=== PATIENT | male | born 1945 | race Caucasian/White ===

== ENCOUNTER 2021-09-25 09:59 | Emergency (ER) | payer MEDICARE, OTHER ==
[~2021-09-25] VITALS: Ht 180.3 cm; Wt 76.2 kg
[~2021-09-25 09:59] MED LIST: ATEN25TA PO; DABI150C PO; DILT240C97 PO; DOCU100C33 PO; HYDR25TA PO; OXYC-165 PO; TAMS0.4C32 PO
[2021-09-25 10:30] VITALS: BP 152/108
[2021-09-25] MEDS ORDERED: CLONIDINE HCL 0.2 MG TABLET PO SCH (10:30)
[2021-09-25 11:06] LABS: BASOPHILS % (AUTO) 0.5 % (0.0-5.0); EOSINOPHILS % (AUTO) 0.8 % (0.0-8.0); LYMPHOCYTES % (AUTO) 17.6 % (21.0-51.0); MEAN CORPUSCULAR HEMOGLOBIN 31.5 pg (27.0-33.0); MEAN CORPUSCULAR HGB CONC 33.7 g/dL (32.0-36.0); MEAN CORPUSCULAR VOLUME 93.7 fL (79-99); MONOCYTES % (AUTO) 10.7 % (3.0-13.0); NEUTROPHILS % (AUTO) 70.2 % (40.0-77.0); PLATELET COUNT (AUTO) 146 K/uL (130-400); RED BLOOD CELL COUNT(AUTO) 5.55 MIL/uL (4.50-6.20); RED CELL DISTRIBUTION WIDTH 12.8 % (11.0-15.5)
[2021-09-25 11:11] LABS: CREATININE 0.9 mg/dL (0.5-1.5); POTASSIUM 4.1 mmol/L (3.5-5.1)
== END 2021-09-25 12:02 | disposition home or self-care (01) ==
LOC: EDH 09:59
DX: I16.0 Hypertensive urgency (principal); I10 Essential (primary) hypertension; M47.812 Spondylosis without myelopathy or radiculopathy, cervical region; E78.00 Pure hypercholesterolemia, unspecified; I48.91 Unspecified atrial fibrillation; M19.90 Unspecified osteoarthritis, unspecified site; Z79.01 Long term (current) use of anticoagulants; Z79.899 Other long term (current) drug therapy
CPT/HCPCS: 36415; 80048; 84484; 85025; 93005

== ENCOUNTER → 2023-10-04 | Outpatient (CLI) | payer OTHER | END | disposition home or self-care (01) | LOC: RAH 09:17 | PROVIDERS: ATTEND Internal Medicine Cardiovascular Disease | DX: I74.3 Embolism and thrombosis of arteries of the lower extremities (principal); I73.9 Peripheral vascular disease, unspecified; R60.9 Edema, unspecified | CPT/HCPCS: 93925; 93970 ==

== ENCOUNTER → 2023-11-07 | Outpatient (CLI) | payer OTHER | END | disposition home or self-care (01) | LOC: RAH 13:47 | PROVIDERS: ATTEND Chiropractor | DX: I08.2 Rheumatic disorders of both aortic and tricuspid valves (principal); I11.9 Hypertensive heart disease without heart failure; M47.812 Spondylosis without myelopathy or radiculopathy, cervical region | CPT/HCPCS: 93306 ==

== ENCOUNTER → 2024-01-01 | Outpatient (CLI) | payer OTHER | END | disposition home or self-care (01) | LOC: SHCH 12:27 | PROVIDERS: ATTEND Internal Medicine Cardiovascular Disease | DX: I87.2 Venous insufficiency (chronic) (peripheral) (principal) | CPT/HCPCS: 93970 ==

== ENCOUNTER → 2024-09-02 | Outpatient (CLI) | payer OTHER ==
[~2024-09-02] MED LIST changes: +IOHEXOL-350 75 ML VIAL IV ONE
--- NOTE | 2024-09-02 11:33 | HMCIMG ---
CT ANGIO ABD AORTA W RUNOFF REASON: EDEMA COMPARISON: None TECHNIQUE: CT images were acquired from lung bases through the feet and both lower extremities. The exam was performed before and after IV contrast, 150 cc Omnipaque 350. 2-D and 3-D reconstruction images were performed. FINDINGS: There is mild ectasia of the abdominal aorta without aneurysm or stenosis. Renal and mesenteric artery origins are widely patent. Common and external iliac arteries are patent as are both common femoral Right leg runoff shows occlusion of the right superficial femoral artery in the adductor canal. There is a knee joint stasis in place causing streak artifact. Distal popliteal does not appear to reconstitute. There is musculocutaneous filling of the trifurcation vessels. Posterior tibial artery is patent to the foot and to the digital arch. Peroneal artery is patent to the ankle. The anterior tibial artery appears occluded distally, the dorsalis pedis artery shows faint reconstitution. Left leg shows widely patent to superficial femoral and popliteal arteries. There are are patent trifurcation vessels. There is three-vessel runoff to the ankle with bursitis pedis and posterior tibial runoff to the foot. There is a left hip joint prosthesis in place. Nonvascular findings are otherwise unremarkable. IMPRESSION: 1. Mild ectasia of the abdominal aorta without evidence of aneurysm. 2. Normal-appearing aortoiliac system. 3. Right leg runoff shows an occluded distal superficial femoral artery in the adductor canal, popliteal artery remains occluded, there is muscular cutaneous reconstitution of the proximal runoff vessels. 4. Posterior tibial artery is patent to the ankle, foot and digital arch, peroneal artery patent to the ankle, anterior tibial artery appears occluded at the ankle with faint reconstitution of the dorsalis pedis artery. 5. Left leg runoff shows normal findings, patent SFA and popliteal, three-vessel runoff to the ankle with 2 vessel runoff to the foot.
== END | disposition home or self-care (01) ==
LOC: RAH 08:19
PROVIDERS: ATTEND Internal Medicine Cardiovascular Disease
DX: I77.811 Abdominal aortic ectasia (principal); I77.1 Stricture of artery; R60.0 Localized edema
CPT/HCPCS: 75635; Q9967

== ENCOUNTER → 2024-09-25 | Outpatient (CLI) | payer OTHER ==
[~2024-09-25] MED LIST changes: -IOHEXOL-350 75 ML VIAL IV ONE
--- NOTE | 2024-09-28 07:38 | HMCSR ---
APPROVED REPORT EXAM: Two-dimensional and M-mode echocardiogram with Doppler and color Doppler. INDICATION ICD: R07.9 Chest pain 2D Dimensions RVDd3.7 cmLVEF(%)54.8 (>50%)LVED Vol(simp.)110.0 mL IVSd1.3 (0.7-1.1cm)FS(%)28 %LVES Vol(simp.)54.0 mL LVDd4.3 (3.8-5.6cm)Ao Root(2D)3.7 (2.0-3.7cm)LVEF(%, simp.)51 % PWd1.3 (0.7-1.1cm)LVOT diam2.1 (1.8-2.4cm)LA ESV INDEX (BP)62.26 mL/m2 LVDs3.1 (2.5-4.0cm)IVC diam1.5 cm Aortic Valve AoV Vmax1.3 m/Dimitri Peak GR6.8 mmHgLVOT Vmax0.7 m/s AoV VTI0.3 mAo Mean GR3.3 mmHgLVOT VTI0.14 m PIYUSH (VMAX)1.9 cm2AVA (VTI) 1.9 cm2 Mitral Valve MV E Vmax75.9 cm/sDECEL Xzvi321 ms MR Max PG121 mmHgP 1/2 T47 ms MVA (PHT)4.6 cm2 Pulmonary Valve PV Vmax1.0 m/sPV VTI0.17 m Tricuspid Valve TR Vmax2.4 m/sRAP (EST) 3 afTlBNTP66.2 mmHg TR Peak GR23.2 mmHg Left Ventricle Left ventricular cavity size is normal. There is mild concentric left ventricular hypertrophy. LVEF i s 50-55%. No left ventricle thrombus noted on this study. The LV diastolic function was unable to be assessed due to atrial arrhythmia. Right Ventricle The right ventricle is normal size. The right ventricular systolic function is normal. Atria The left atrium is severely dilated. The right atrium is severely dilated. Aortic Valve Aortic valve is trileaflet. Aortic valve is mildly calcified. Trace aortic regurgitation. Calculated aortic valve area is 1.9 cm2 with maximum pressure gradient of 6.9 mmHg and mean pressure gradient of 3.3 mmHg. Mitral Valve Mitral valve leaflets are mildly sclerotic. Mitral annular calcification is mild. Borderline mitral v alve prolapse. Mitral regurgitation is mild to moderate. There is no mitral valve stenosis. A mild mi tral valve prolapse is present. Tricuspid Valve The tricuspid valve leaflets appear normal. There is moderate tricuspid regurgitation. Pulmonic Valve The pulmonic valve leaflets are thin and pliable; valve motion is normal. There is trace to mild valv ular regurgitation. Great Vessels The aortic root is normal in size. The IVC is normal in size and collapses >50% with inspiration. Pericardium No pericardial effusion. Conclusion Left ventricular cavity size is normal. There is mild concentric left ventricular hypertrophy. LVEF is 50-55%. The right ventricle is normal size. The left atrium is severely dilated. The right atrium is severely dilated. Aortic valve is trileaflet. Aortic valve is mildly calcified. Trace aortic regurgitation. Calculated aortic valve area is 1.9 cm2 with maximum pressure gradient of 6.9 mmHg and mean pressure gradient of 3.3 mmHg. Mitral valve leaflets are mildly sclerotic. Mitral annular calcification is mild. Borderline mitral valve prolapse. Mitral regurgitation is mild to moderate. There is no mitral valve stenosis. There is moderate tricuspid regurgitation. There is trace to mild valvular regurgitation. The aortic root is normal in size. The IVC is normal in size and collapses >50% with inspiration. No pericardial effusion.
== END | disposition home or self-care (01) ==
LOC: SHCH 12:17
PROVIDERS: ATTEND Internal Medicine Cardiovascular Disease
DX: I08.3 Combined rheumatic disorders of mitral, aortic and tricuspid valves (principal); R07.9 Chest pain, unspecified
CPT/HCPCS: 93306

== ENCOUNTER → 2024-10-12 | Outpatient (CLI) | payer OTHER ==
--- NOTE | 2024-10-13 09:35 | HMCSR ---
APPROVED REPORT Laterality: Bilateral Indications r09.89 Doppler Spectral Velocity Analysis PSV / EDVPSV / EDV ECA (R) 61 / cm/sECA (L) 25 / cm/s dICA (R) 50 / 23 cm/sdICA (L) Ambreen (R) 51 / 22 cm/smICA (L) pICA (R) 51 / 22 cm/spICA (L) dCCA (R) 70 / 19 cm/sdCCA (L) mCCA (R) 63 / 22 cm/smCCA (L) pCCA (R) 84 / 26 cm/spCCA (L) Vert (R) 37 / cm/sVert (L) 81 / cm/s Subl. (R) 86 / cm/sSubl. 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 Unlcear, but it appear there is retrograde flow in the LICA, with antegrade flow in the LECA. Minimal plaque noted in the right carotids, without hemodynamic significance. Bilateral vertebral arteries appear antegrade. 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 Unlcear, but it appear there is retrograde flow in the LICA, with antegrade flow in the LECA. Minimal plaque noted in the right carotids, without hemodynamic significance. Bilateral vertebral arteries appear antegrade. 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 Unlcear, but it appear there is retrograde flow in the LICA, with antegrade flow in the LECA. Minimal plaque noted in the right carotids, without hemodynamic significance. Bilateral vertebral arteries appear antegrade.
== END | disposition home or self-care (01) ==
LOC: SHCH 12:33
PROVIDERS: ATTEND Internal Medicine Cardiovascular Disease
DX: I65.22 Occlusion and stenosis of left carotid artery (principal); R09.89 Other specified symptoms and signs involving the circulatory and respiratory systems
CPT/HCPCS: 93880

== ENCOUNTER 2024-11-19 16:55 | Emergency (ER) | payer OTHER ==
[~2024-11-19] VITALS: Ht 180.3 cm; Wt 81.6 kg
--- NOTE | 2024-11-19 17:28 | ERN ---
General Chief Complaint: Other Problems Stated Complaint: OTHER Time Seen by MD: 17:14 Time Seen by Midlevel: 17:14 Source: patient, EMS History of Present Illness Initial Comments The patient is an 79-year-old male presenting to the ER via EMS for evaluation of a left wound evaluation. The patient had a left tomorrow heart catheter performed earlier today. When he was at home he reports having a coughing spell and noticed bleeding from the site so he decided to report to the ER for further evaluation. When EMS arrived on scene the bleeding was already controlled. On arrival the patient denies any groin pain or any active bleeding. Patient denies any other symptom. Allergies: Coded Allergies: capsaicin (Unverified Allergy, Unknown, 09/25/21) Home Meds Reported Medications Dabigatran Etexilate Mesylate (Pradaxa) 150 Mg Capsule, 150 MG PO BID, CAP 08/27/16 Diltiazem HCl (Diltiazem 24Hr ER) 240 Mg Cap.er.24h, 240 MG PO NOON, #90 08/22/16 Docusate Sodium (Docusate Sodium) 100 Mg Capsule, 100 MG PO BID PRN for CONSTIP ATION, CAP 08/22/16 Hydrochlorothiazide (Hydrochlorothiazide) 25 Mg Tablet, 25 MG PO NOON, #90 08/22/16 Atenolol (Atenolol) 25 Mg Tablet, 25 MG PO NOON, #90 08/22/16 Tamsulosin HCl (Tamsulosin HCl) 0.4 Mg Cap.er.24h, 0.4 MG PO NOON, #30 08/22/16 Oxycodone HCl/Acetaminophen (Oxycodone-Acetaminophen 5-325) 1 Each Tablet, 5-325 MG PO Q6H PRN for PAIN LEVEL 4 TO 6, #12 08/22/16 Past Medical History Past Medical History: A-Fib, CAD, High Cholesterol Past Surgical History: Other Surgical History Other: KNEE REPLACEMENT, HIP SX Social History Social History: Other ROS Dictation CONSTITUTIONAL: Negative except for HPI HEAD/FACE: Negative except for HPI EENT: Negative except for HPI RESPIRATORY: Negative except for HPI GASTROINTESTINAL/ABDOMINAL: Negative except for HPI GENITOURINARY: Negative except for HPI MUSCULOSKELETAL: Negative except for HPI INTEGUMENTARY: Negative except for HPI NEUROLOGICAL/PSYCH: Negative except for HPI HEMATOLOGIC/LYMPHATIC: Negative except for HPI All Systems Negative, Except as noted above. 13 point review of systems assessed and all negative except for above. Physical Exam Physical Exam Dictation Vital Signs reviewed General Appearance: Alert, oriented x 3, no acute distress, well developed, nourished. Head and Face: non-traumatic. Eyes: PERRL, pink conjunctivas, eyelid no trauma, anterior chamber with arcus senilis. Ears: Pinnas intact and no signs of trauma or erythema ear canals clear and no discharge TM no erythema Nose: No discharge, no bleeding. Oropharynx: Mouth normal, tongue pink, pharynx clear,no erythema, tonsils no exudates, no abscesses noted, mucous membrane moist Neck: Supple, non-tender, no thyromegaly, no masses, no JVD, no bruits Breast:Deferred Chest:No tenderness, no crepitus, no paradoxical movement, no retractions Lungs:Clear, well-ventilated, symmetric, no rales, no wheezing, no rhonchi, no stridor, good breath sounds bilaterally Heart: Regular rate, regular rhythm, no murmur, no gallops Vascular: no peripheral edema, Abdomen: Soft, positive bowel sounds, nondistended, no guarding, nontender, no rebound, no masses no hepatomegaly, no splenomegaly, no Davis's sign, no hernias. Rectal: Deferred Genital: Deferred Neurological: Normal speech, motor function intact, sensory function intact Musculoskeletal: Neck nontender, full range of motion, back nontender, full range of motion, Extremities: nontender, full range of motion Skin: Color pink, dry, no turgor, no rash, no lacerations, no abrasions, no contusions. Lymphatic: Deferred MDM MDM: The patient is an 79-year-old male presenting to the ER via EMS for evaluation of a left wound evaluation. The patient had a left tomorrow heart catheter performed earlier today. When he was at home he reports having a coughing spell and noticed bleeding from the site so he decided to report to the ER for further evaluation. When EMS arrived on scene the bleeding was already controlled. On arrival the patient denies any groin pain or any active bleeding. Patient denies any other symptom. On physical examination the patient is in no acute distress. Blood pressure stable at 150 2/90 with a normal heart rate of 87 beats per minute. On physical examination there is a postsurgical incision to the left groin with no active bleeding, swelling, or tenderness. Patient has no abdominal tenderness. His vital signs are stable. A quick clot was applied and the patient will be discharged home. Patient is to follow up with his naval designer further evaluation. Return precautions discussed Differential diagnosis: Wound evaluation, hematoma, pseudoaneurysm There are no social concerns with this patient. Prescription drug management Prescriptions will include: None Medical management and examination interpretation discussions were had by me with other qualified healthcare professionals as indicated for the patient's care. ED Course Orders Procedure Category Date Status Time *Nursing CPOE 11/19/24 Transmitted Communication: 17: Vital Signs Date Time Temp Pulse Resp B/P (MAP) Pulse Ox O2 Delivery O2 Flow Rate FiO2 11/19/24 16:57 99.3 87 16 152/90 94 Room Air 0 11/19/24 16:57 99.3 87 16 152/90 94 Room Air* 0 21 DX & DISP Disposition: Discharge Departure Impression: Primary Impression: Encounter for evaluation of wound Condition: Stable Additional Instructions: With your left groin postsurgical incision does not have any active bleeding or signs of infection. Continue to monitor left groin for increase in swelling, redness, or bleeding. Follow up with your naval designer for further evaluation. If you develop any new or worsening symptoms please report to the ER for further evaluation. Referrals: SELF,REFERRAL (PCP) Time of Disposition: 17:30 I have reviewed the case, and I agree with, Diagnosis and Plan I performed the substantive portion of the visit. I have reviewed and per sonally made and approve the management plan that is documented in the note by myself or the ROSEANNA. I acknowledge for responsibility for the patient's management plan. MARIA DE JESUS SABA Nov 19, 2024 17:27 ANTHONY LEDEZMA DO Nov 19, 2024 17:50
[2024-11-19 18:54] VITALS: BP 170/90; PULSE 87; RESP 25; TEMP 98.7; O2SAT 95
--- NOTE | 2024-11-19 18:55 | NUR ---
PATIENT DC'D BY ER MD PATIENT ALERT X4 I ASSESSED PATIENTS GROIN AND FOUNF NO SIGNS OF BLEEDING, HEMATOMA, OR INFECTION PATIENTS BP WAS ELEVATED TO 170/90 , HE STATED HE DID NOT TAKE BP MEDS THIS MORNING DUE TO LEFT HEART CATH PROCEDURE AND HE STATES HE HAS CHRONIC BACK PAIN WITH HIS BP ALWAYS RUNNING HIGH I DC'D PATIENTS IV WITH CATH STILL IN PLACE AND APPLIED 2X2 GAUZE WITH COBAN I EXPLAINED TO PATIENT AND AT BEDSIDE ABOUT HOW TO TAKE CARE OF PUNCTURE SITE AND PROVIDED THEM WITH INFO ON HOW TO TAKE CARE OF IT, I ALSO PROVIDED THEM WITH SUPPLIES ON HOW TO TAKE CARE OF IT PATIENT WAS TAKEN TO TRANSPORT VIA WHEELCHAIR, NO COMPLICATIONS
== END 2024-11-19 18:44 | disposition home or self-care (01) ==
LOC: EDH 16:55
DX: I97.610 Postprocedural hemorrhage of a circulatory system organ or structure following a cardiac catheterization (principal); E78.00 Pure hypercholesterolemia, unspecified; I25.10 Atherosclerotic heart disease of native coronary artery without angina pectoris; Z79.02 Long term (current) use of antithrombotics/antiplatelets; Z96.659 Presence of unspecified artificial knee joint
CPT/HCPCS: 99283